=== PATIENT | female | born 1960 | race Caucasian/White ===

== ENCOUNTER 2023-05-04 17:44 | Inpatient (IN) | payer MEDICARE, BC ==
[~2023-05-04] VITALS: Ht 175.3 cm; Wt 68.9 kg
[2023-05-04 18:37] LABS: BASOPHILS ABSOLUTE AUTO 0.08 K/mm3 (0.00-0.23); BASOPHILS PERCENT AUTO 1 % (0-2); EOSINOPHILS ABSOLUTE AUTO 0.03 K/mm3 (0.00-0.68); EOSINOPHILS PERCENT AUTO 0 % (0-6); Hemoglobin 12.7 g/dL (11.5-16.0); IMMATURE GRAN ABSOLUTE AUTO 0.05 K/mm3 (0.00-0.10); IMMATURE GRAN PERCENT AUTO 0 % (0-1); LYMPHOCYTES PERCENT AUTO 9 % (21-46); MONOCYTES ABSOLUTE AUTO 0.58 K/mm3 (0.16-1.47); MONOCYTES PERCENT AUTO 4 % (4-13); Mean Corpuscular HGB 26.7 pg (26.0-34.0); Mean Corpuscular HGB Conc 31.8 g/dL (31.5-36.5); Mean Corpuscular Volume 84 fL (80-100); Mean Platelet Volume 11.1 fL (9.1-12.4); NEUTROPHILS ABSOLUTE AUTO 13.78 K/mm3 (1.96-9.15); NEUTROPHILS PERCENT AUTO 86 % (41-73); Platelet Count 461 K/mm3 (150-400); RDW Coefficient Variation 18.9 % (11.7-14.2); RDW Standard Deviation 57.1 fL (35.1-46.3); Red Blood Cell Count 4.76 M/mm3 (3.80-5.20); White Blood Cell Count 16.02 K/mm3 (4.00-11.30)
[2023-05-04 18:57] LABS: Albumin, Blood 3.2 g/dL (3.4-5.0); Albumin/Globulin Ratio 0.8 (0.8-1.8); Bilirubin, Total 0.4 mg/dL (0.1-1.0); Bun/Creatinine Ratio 19.9 (12.0-20.0); Calcium, Blood 9.1 mg/dL (8.5-10.1); Creatinine, Blood 0.5 mg/dL (0.40-1.00); Globulin, Blood 3.9 g/dL (2.2-4.0); Potassium, Blood 4.3 mmol/L (3.5-5.5); Total Protein, Blood 7.1 g/dL (6.4-8.2)
[2023-05-04 20:29] LABS: Source, Urine Clean Catch
[2023-05-04 20:35] LABS: Appearance, Urine Clear (Clear); Bilirubin, Urine Neg (Neg); Blood, Urine 5+ (Neg); Color, Urine Yellow (P-Yellow); Glucose Qualitative, Urine Neg (Neg); Ketones, Urine Neg (Neg); Leukocyte Esterase, Urine Neg (Neg); Nitrite, Urine Neg (Neg); Protein, Urine Neg (Neg); Specific Gravity, Urine 1.015 (1.003-1.022); Urobilinogen, Urine NORM (Normal)
[2023-05-04 20:49] LABS: Bacteria Not Seen /hpf; Red Blood Cells, Urine 50-100 /hpf (0-2); Squamous Epithelial Cells Not Seen /hpf (Few); White Blood Cells, Urine Not Seen /hpf (0-5)
[2023-05-04 21:23] LABS: Influenza A, PCR NEGATIVE (NEGATIVE); Influenza B, PCR NEGATIVE (NEGATIVE); Resp Syncytial Virus, PCR NEGATIVE (NEGATIVE); SARS-Cov-2 (COVID-19) PCR, MMC NEGATIVE (NEGATIVE)
[2023-05-04 21:47] LABS: Magnesium, Blood 1.9 mg/dL (1.6-2.4); Phosphorus, Blood 4.6 mg/dL (2.5-4.9)
[2023-05-04] MEDS ORDERED: OMEP20ER PO (21:50)
[2023-05-04] MEDS ORDERED: ELIQUIS5 M2 PO (21:50)
[2023-05-04] MEDS ORDERED: GABA300 PO (21:50)
[2023-05-04] MEDS ORDERED: BACL10 PO (21:51)
[2023-05-04] MEDS ORDERED: CHOLESTYRAMI239.4 G1 PO (21:51)
[2023-05-04] MEDS ORDERED: COLESTIPOL HCL1 G1 PO (21:51)
[2023-05-04] MEDS ORDERED: METO25ER PO (21:52)
[2023-05-04] MEDS ORDERED: DIPATR PO (21:52)
[2023-05-04] MEDS ORDERED: DULO60 PO (21:52)
[2023-05-04] MEDS ORDERED: ROPI1 PO (21:52)
[2023-05-04] MEDS ORDERED: OXYC10ER PO (21:53)
[2023-05-04] MEDS ORDERED: Ativan1 MG PO (21:53)
[2023-05-04] MEDS ORDERED: OYSTER SHELL 51 EAC2 PO (21:54)
[2023-05-04] MEDS ORDERED: QUETIAPINE FUMA25 MG PO (23:59)
[2023-05-05 00:11] VITALS: BP 133/73
[2023-05-05 01:11] LABS: Hematocrit 34.7 % (33.0-51.0); Hemoglobin 11.5 g/dL (11.5-16.0); Mean Corpuscular HGB 27.2 pg (26.0-34.0); Mean Corpuscular HGB Conc 33.1 g/dL (31.5-36.5); Mean Corpuscular Volume 82 fL (80-100); Mean Platelet Volume 10.8 fL (9.1-12.4); Platelet Count 427 K/mm3 (150-400); RDW Coefficient Variation 18.5 % (11.7-14.2); RDW Standard Deviation 55.1 fL (35.1-46.3); Red Blood Cell Count 4.23 M/mm3 (3.80-5.20); White Blood Cell Count 25.18 K/mm3 (4.00-11.30)
[2023-05-05 01:27] LABS: Bun/Creatinine Ratio 21.9 (12.0-20.0); Calcium, Blood 8.4 mg/dL (8.5-10.1); Creatinine, Blood 0.46 mg/dL (0.40-1.00); Potassium, Blood 3.9 mmol/L (3.5-5.5)
[2023-05-05 05:33] VITALS: BP 117/75
--- NOTE | 2023-05-05 07:32 | NUR ---
report received verified from er. a/o and pleasent, cooperative with orders. pt fibrile and with high heart rate, new iv started to right fore arm and fluids plus antibiotics started pt does not report of any distress, daughter at bedside to assist in care. admission done
[2023-05-05 08:05] VITALS: BP 137/81
[2023-05-05 16:22] VITALS: BP 161/85
--- NOTE | 2023-05-05 17:54 | NUR ---
SHIFT SUMMARY PT A&OX4, VSS, W/C AND PROSTHESIS AT BASELINE, VOIDING, TOLERATING PO, AND PAIN MANAGED PER EMAR. BLOOD CULTURE RESULTS PENDING. CALL LIGHT WITHIN REACH AND PT ABLE TO MAKE NEEDS KNOWN.
--- NOTE | 2023-05-05 19:35 | NUR ---
AWAKE. AFFECT CHEERFUL. DENIES DISCOMFORT. PUREWICK IN USE. CALL LIGHT IN REACH
[2023-05-05 19:56] VITALS: BP 154/85
--- NOTE | 2023-05-06 03:18 | NUR ---
ELECTRICAL PROSPECTING ENGINEER SUMMARY BP ELEVATED, OTHERWISE VSS. ALERT AND ORIENTED X 4. INTERMITTENT DISCOMFORT - SEE MAR FOR DETAILS WHEN MEDICATED FOR PAIN. IVF INFUSING, TOLERATING DIET/FLUIDS WELL. PUREWICK IN USE FOR VOIDING, INCONT X 1 AND LINEN CHANGED. HAS BEEN RESTING QUIETLY WITH FEW INTERRUPTIONS OTHERWISE. CALL LIGHT I REACH. RAILS UP X 3 FOR SAFETY. WILL CONTINUE TO MONITOR
[2023-05-06 04:34] VITALS: BP 159/86
[2023-05-06 05:27] LABS: Hematocrit 33.4 % (33.0-51.0); Mean Corpuscular HGB 27.3 pg (26.0-34.0); Mean Corpuscular HGB Conc 32.9 g/dL (31.5-36.5); Mean Corpuscular Volume 83 fL (80-100); Mean Platelet Volume 11.5 fL (9.1-12.4); Platelet Count 409 K/mm3 (150-400); RDW Coefficient Variation 18.6 % (11.7-14.2); RDW Standard Deviation 55.9 fL (35.1-46.3); Red Blood Cell Count 4.03 M/mm3 (3.80-5.20); White Blood Cell Count 24.23 K/mm3 (4.00-11.30)
[2023-05-06 05:54] LABS: Albumin, Blood 2.3 g/dL (3.4-5.0); Anion Gap 6 mmol/L (6-16); Blood Urea Nitrogen 5 mg/dL (8-24); Bun/Creatinine Ratio 12.6 (12.0-20.0); CO2, Blood 24 mmol/L (21-32); Calcium, Blood 8.3 mg/dL (8.5-10.1); Chloride, Blood 108 mmol/L (98-108); Glomerular Filtration Rate 112 (60-); Glucose, Blood 121 mg/dL (70-99); Magnesium, Blood 1.9 mg/dL (1.6-2.4); Phosphorus, Blood 2.1 mg/dL (2.5-4.9); Potassium, Blood 3.3 mmol/L (3.5-5.5); Sodium, Blood 138 mmol/L (136-145)
[2023-05-06 07:51] VITALS: BP 136/84
[2023-05-06 16:12] VITALS: BP 132/91
--- NOTE | 2023-05-06 16:56 | NUR ---
SHIFT SUMMARY PT AOX4, MAKES HER NEEDS KNOWN. SHE IS ON BR. MEDICATED FOR PAIN PER THE EMAR. NO OTHER COMPLAINTS FROM THE PT THIS SHIFT. SHE HAS BEEN RESTING COMFORTABLY IN BED, HER DAUGHTER WAS AT THE BS THIS SHIFT. CALL LIGHT WITHIN REACH, BED IN THE LOWEST POSITION. WILL REPORT TO ONCOMING NURSE.
[2023-05-06 19:26] VITALS: BP 143/81
--- NOTE | 2023-05-06 22:00 | NUR ---
PT A&OX4 PLEASANT COOPERATIVE REPORTS DISTAL PAIN BLE RECENT BILAT BKA IN AUGUST. PT REPORTS ANXIETY 11/29W STATES HX OF PANIC SINCE SURGERIES. MEDICATED PER EMAR. TELE ST BB @107BPM LUNGS ARE CLEAR T/O. PT HAS HX OF STOMACH RESECTION BS ABSENT DENIES PAIN OR TENDERNESS. PT REPORTS NEUROPATHY CONSTANT W/ AMPUTATION AND HAS "PHANTOM" PAINS TO STUMPS. PT HAS PURWIC IN PLACE. PT CALLS APPROPERIATELY CALL GARZA WITHIN REACH,BED LOWERED PT REQUESTED FAN ,WILL CONTINUE TO MONITOR.
[2023-05-07 04:13] VITALS: BP 153/79
[2023-05-07 05:35] LABS: Hematocrit 33.6 % (33.0-51.0); Mean Corpuscular HGB 27.2 pg (26.0-34.0); Mean Corpuscular HGB Conc 32.7 g/dL (31.5-36.5); Mean Corpuscular Volume 83 fL (80-100); Mean Platelet Volume 12.1 fL (9.1-12.4); Platelet Count 441 K/mm3 (150-400); RDW Coefficient Variation 18.1 % (11.7-14.2); RDW Standard Deviation 54.4 fL (35.1-46.3); Red Blood Cell Count 4.05 M/mm3 (3.80-5.20)
[2023-05-07 06:05] LABS: Bun/Creatinine Ratio 15.8 (12.0-20.0); Calcium, Blood 8.6 mg/dL (8.5-10.1); Creatinine, Blood 0.44 mg/dL (0.40-1.00); Potassium, Blood 3.7 mmol/L (3.5-5.5)
--- NOTE | 2023-05-07 06:44 | NUR ---
ASSUMED CARE OF PT AT 0400. NO CHANGES NOTED. AM MEDS RECIEVED PER EMAR. WCTM AND REPORT TO DAY RN.
[2023-05-07 07:58] VITALS: BP 154/96
[2023-05-07] MEDS ORDERED: DOXY100 PO (13:29)
[2023-05-07] MEDS ORDERED: GUAI600T33 PO (13:29)
--- NOTE | 2023-05-07 15:09 | NUR ---
PT DISCHARGED 1500 AOX4 AND COOPERATIVE OF ALL CARE. PAPER WORK REVIEWED AND EDUCARTIONAL MATERIAL SENT WITH PT. PT HAD DAUGHTER AT BEDSIDE TO GO OVER INFORMATION AND TO TRANSFER HOME. PT WAS ABLE TO GET INTO WHEEL CHAIR WITH DAUGHTERS HELP AND REFUSED ESCORT OUT. ALL PERSONAL BELONGINGS COLLECTED AND TAKEN OUT WITH PT. NO DISTESS NOTED.
== END 2023-05-07 15:00 | disposition home or self-care (01) | DRG 871 ==
LOC: ER 17:44 → MEDS 23:48
PROVIDERS: Emergency Medicine; Internal Medicine; Student in an Organized Health Care Education/Training Program; ADMIT Internal Medicine
DX: A41.9 Sepsis, unspecified organism (principal); G92.8 Other toxic encephalopathy; J18.9 Pneumonia, unspecified organism; E87.20 Acidosis, unspecified; R65.20 Severe sepsis without septic shock; E87.6 Hypokalemia; Z86.73 Personal history of transient ischemic attack (TIA), and cerebral infarction without residual deficits; Z89.512 Acquired absence of left leg below knee; Z89.511 Acquired absence of right leg below knee; Z90.81 Acquired absence of spleen; Z90.3 Acquired absence of stomach [part of]; Z88.5 Allergy status to narcotic agent; Z88.0 Allergy status to penicillin; Z98.84 Bariatric surgery status; Z79.891 Long term (current) use of opiate analgesic; Z79.01 Long term (current) use of anticoagulants; Z11.52 Encounter for screening for COVID-19
CPT/HCPCS: 0241U; 36415; 51701; 70450; 70491; 71045; 80048; 80053; 80069; 81001; 83605; 83735; 84100; 84145; 85025; 85027; 87449; 93005; 93010; 96361-59; 96365-59; 99285-25; A9270; J0456; J0692; J0696; J7030; J7050; J7120; Q9967

== ENCOUNTER 2023-08-12 11:50 | Inpatient (IN) | payer MEDICARE, BC ==
[~2023-08-12] VITALS: Ht 121.9 cm; Wt 71.3 kg
[2023-08-12] VITALS (27 sets, daily range): BP systolic 83–105; BP diastolic 53–70
[~2023-08-12 11:50] MED LIST: Ativan1 MG PO; BACL10 PO; CHOLESTYRAMI239.4 G1 PO; COLESTIPOL HCL1 G1 PO; DIPATR PO; DOXY100 PO; DULO60 PO; ELIQUIS5 M2 PO; GABA300 PO; GUAI600T33 PO; METO25ER PO; OMEP20ER PO; OXYC10ER PO; OXYCODONE-ACET1 EAC2 PO; OYSTER SHELL 51 EAC2 PO; QUETIAPINE FUMA25 MG PO; ROPI1 PO
[2023-08-12] MEDS ORDERED: NS 1,000 ML IV SCH ×2 (12:05→14:05)
[2023-08-12 12:20] LABS: Hemoglobin 10.3 g/dL (11.5-16.0)
[2023-08-12 12:29] LABS: Hematocrit 29.9 % (33.0-51.0); Mean Corpuscular HGB 31.4 pg (26.0-34.0); Mean Corpuscular HGB Conc 34.4 g/dL (31.5-36.5); Mean Corpuscular Volume 91 fL (80-100); Mean Platelet Volume 11.8 fL (9.1-12.4); Platelet Count 589 K/mm3 (150-400); RDW Coefficient Variation 17.8 % (11.7-14.2); RDW Standard Deviation 59.2 fL (35.1-46.3); Red Blood Cell Count 3.28 M/mm3 (3.80-5.20)
[2023-08-12 12:42] LABS: Albumin, Blood 1.5 g/dL (3.4-5.0); Albumin/Globulin Ratio 0.4 (0.8-1.8); Bilirubin, Total 0.5 mg/dL (0.1-1.0); Bun/Creatinine Ratio 19.8 (12.0-20.0); Calcium, Blood 7.5 mg/dL (8.5-10.1); Creatinine, Blood 0.71 mg/dL (0.40-1.00); Globulin, Blood 3.6 g/dL (2.2-4.0); Potassium, Blood 4.6 mmol/L (3.5-5.5); Total Protein, Blood 5.1 g/dL (6.4-8.2)
[2023-08-12 12:56] LABS: BASOPHILS PERCENT MAN 0 % (0-2); EOSINOPHILS PERCENT MAN 0 % (0-6); LYMPHOCYTES ABSOLUTE MAN 1.04 K/mm3 (0.84-5.20); LYMPHOCYTES PERCENT MAN 2 % (21-46); MONOCYTES PERCENT MAN 0 % (4-13); NEUTROPHILS ABSOLUTE MAN 51.25 K/mm3 (1.96-9.15); SEG NEUTROPHILS PERCENT MAN 98 % (41-73); TOTAL CELLS COUNTED 100
[2023-08-12] MEDS ORDERED: Gabapentin 300 MG Cap PO ONE (15:20)
[2023-08-12] MEDS ORDERED: Baclofen 10 MG Tab PO ONE (15:20)
[2023-08-12] MEDS ORDERED: OxyCODONE 10/Acetamin 325 TABLET PO ONE (15:25)
[2023-08-12] MEDS ORDERED: Cefepime HCl 1,000 MG in NS 100 ML IV SCH (16:00)
[2023-08-12] MEDS ORDERED: Vancomycin HCL 1,500 MG in NS 250 ML IV SCH (16:00)
--- NOTE | 2023-08-12 16:08 | NUR ---
ADMISSION: Pt admitted from ED. Second liter of NS infsing along with first antibiotic. Pt plesant, sitting up, A/O x 4. Supplemental O2 4L via NC. Daughter at bedside with pt. Bilateral IV's patent.
[2023-08-12] MEDS ORDERED: CALQUENCE100 M1 PO (17:16)
--- NOTE | 2023-08-12 17:42 | NUR ---
PROVIDER UPDATE: Dr Faust notified of pt's updated medication requisition and skin issues.
[2023-08-12] MEDS ORDERED: QUEtiapine Fumarate 25 MG Tab PO PRN (18:00)
--- NOTE | 2023-08-12 18:33 | NUR ---
HOME MEDICATIONS: Pt's daughter states she will bring in home medications tomorrow morning.
--- NOTE | 2023-08-12 18:46 | NUR ---
SHIFT SUMMARY: Pt admitted to ICU 4 from ED. Photos taken of redness and what appears to be an old, healing skin tear on coccyx/right buttock and a skin tear on the right wrist. Supplemental oxygen titrated down to 2L NC. Pt has received 2 liters NS. She continues to have soft BPs. 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 She has bilateral BKAs. Pure wick placed per pt request. Pt's daughter, Rima, at bedside for admission and received updates.
--- NOTE | 2023-08-12 19:00 | NUR ---
PROVIDER UPDATE: Dr Faust called regarding pt's hypotension. RN instructed to continue to monitor.
--- NOTE | 2023-08-12 19:29 | NUR ---
PULM CONSULT: RN to call [facility] in morning. Clarified with Dr Faust and previous solution designer pulm.
[2023-08-12] MEDS ORDERED: OxyCODONE 10/Acetamin 325 TABLET PO SCH (20:00)
[2023-08-12] MEDS ORDERED: Apixaban 5 MG Tab PO SCH (21:00)
[2023-08-12] MEDS ORDERED: DULoxetine HCL 60 MG Capsule DR PO SCH (21:00)
[2023-08-12] MEDS ORDERED: Gabapentin 300 MG Cap PO SCH (21:00)
[2023-08-12] MEDS ORDERED: Baclofen 10 MG Tab PO SCH (21:00)
[2023-08-12] MEDS ORDERED: Misc. Tablet PO SCH ×2 (21:00)
[2023-08-12] MEDS ORDERED: Diphenoxylat/Atrop 2.5 / 0.025MG 1 Tab PO SCH (21:00)
--- NOTE | 2023-08-12 21:28 | NUR ---
ASSUMPTION OF CARE: RECEIVED REPORT FROM VANESSA HART. PT ALERT AND ORIENTED. ANSWERS QUESTIONS AND MAKES NEEDS KNOWN. PT STATES SHE IS VERY TIRED THIS EVENING AND LACKS ENERGY. PT ALSO STATES SHE HAS CHRONIC PAIN ALL OVER HER BODY. MEDICATED PER EMAR WITH RELIEF. BEHAVIORAL TECHNICIAN IN PLACE, SR WITH HR 90'S. SBP SOFT BUT STABLE, MAP >65. PT ON 2L NC WITH SPO2 >90%. DENIES SOB WHEN AT REST. LUNGS MORE DIMINISHED ON THE RIGHT SIDE. PUREWICK IN PLACE, DRAINING YELLOW URINE. NO BM YET. TOLERATING PO INTAKE AT THIS TIME. PIVS INTACT AND SALINE LOCKED. BED LOW AND LOCKED. PT RESTING COMFORTABLY AT THIS TIME. CALL LIGHT IN REACH.
[2023-08-12] MEDS ORDERED: NS 250 ML IV PRN (23:30)
[2023-08-13] VITALS (33 sets, daily range): BP systolic 61–124; BP diastolic 36–84
[2023-08-13] MEDS ORDERED: Metoprolol Tartrate 1 MG/ML 5 ML VIAL IV ONE (03:45)
[2023-08-13] MEDS ORDERED: Vancomycin HCL 1,000 MG in NS 100 ML IV SCH (04:00)
--- NOTE | 2023-08-13 04:00 | NUR ---
PROVIDER UPDATE: CALL PLACED TO DR. CHING REGARDING PT HEART RATE SUSTAINING IN THE 130'S UP FROM THE 90'S. ORDER GIVEN FOR A ONE TIME DOSE OF 5MG LOPRESSOR. PT HR DECREASED BACK TO THE 90'S TO LOW 100'S. PT HAD NO C/O CHEST PAIN OR DISCOMFORT.
[2023-08-13 04:58] LABS: Hematocrit 27.2 % (33.0-51.0); Hemoglobin 9.4 g/dL (11.5-16.0); Mean Corpuscular HGB 31.2 pg (26.0-34.0); Mean Corpuscular HGB Conc 34.6 g/dL (31.5-36.5); Mean Corpuscular Volume 90 fL (80-100); Mean Platelet Volume 12.6 fL (9.1-12.4); Platelet Count 561 K/mm3 (150-400); RDW Coefficient Variation 17.7 % (11.7-14.2); RDW Standard Deviation 57.7 fL (35.1-46.3); Red Blood Cell Count 3.01 M/mm3 (3.80-5.20)
[2023-08-13 05:01] LABS: White Blood Cell Count 35.46 K/mm3 (4.00-11.30)
--- NOTE | 2023-08-13 05:21 | NUR ---
SHIFT SUMMARY: PT REMAINS ALERT AND ORIENTED T/O THE NIGHT. PT REQUIRED INCREASED OXYGEN TO MAINTAIN SATS >90%. PT ON 6L NC WITH SPO2 90-94%. DENIES SOB. THERAPIST RRT IN PLACE, SR/ST WITH FREQUENT PVC'S. HR 90'-S TO 100'S. DENIES CHEST PAIN OR PRESSURE. PT ENDORSES PAIN FREQUENTLY IN BACK, LEGS AND SHOULDERS. SHE STATES THIS IS A CHRONIC PAIN WHICH HAS BEEN RELIEVED BY REPOSITIONING AND MEDICATION. PT WAS ABLE TO SLEEP OFF AND ON T/O THE SHIFT. PT MORE EDEMETOUS THIS SHIFT IN UPPER/LOWER EXTREMETIES. VOIDING LARGE AMOUNTS OF YELLOW URINE, PUREWICK IN PLACE. NO BM THIS SHIFT. PIVS INTACT AND SALINE LOCKED. TOLERATING PO INTAKE WELL. BED LOW AND LOCKED, CALL LIGHT IN REACH.
[2023-08-13 05:51] LABS: BAND PERCENT MAN 3 % (0-8); BASOPHILS PERCENT MAN 0 % (0-2); EOSINOPHILS PERCENT MAN 0 % (0-6); LYMPHOCYTES ABSOLUTE MAN 0.35 K/mm3 (0.84-5.20); LYMPHOCYTES PERCENT MAN 1 % (21-46); MONOCYTES ABSOLUTE MAN 0.35 K/mm3 (0.16-1.47); MONOCYTES PERCENT MAN 1 % (4-13); NEUTROPHILS ABSOLUTE MAN 34.75 K/mm3 (1.96-9.15); SEG NEUTROPHILS PERCENT MAN 95 % (41-73); TOTAL CELLS COUNTED 100
[2023-08-13] MEDS ORDERED: Omeprazole 20 MG CapCR PO SCH (06:00)
[2023-08-13 07:09] LABS: Albumin, Blood 1.3 g/dL (3.4-5.0); Albumin/Globulin Ratio 0.4 (0.8-1.8); Bilirubin, Total 0.3 mg/dL (0.1-1.0); Bun/Creatinine Ratio 26.4 (12.0-20.0); Calcium, Blood 7.4 mg/dL (8.5-10.1); Creatinine, Blood 0.53 mg/dL (0.40-1.00); Globulin, Blood 3.2 g/dL (2.2-4.0); Potassium, Blood 4.7 mmol/L (3.5-5.5); Total Protein, Blood 4.5 g/dL (6.4-8.2)
[2023-08-13] MEDS ORDERED: Cholestyramine/Aspartame 4 GM Packet PO SCH (08:00)
[2023-08-13] MEDS ORDERED: Metoprolol Succinate 25 MG TABCR PO SCH (09:00)
[2023-08-13] MEDS ORDERED: Calcium 500 MG/Vit D 200 Units Tab PO SCH (09:00)
[2023-08-13] MEDS ORDERED: Lactobacil 2-S.Thermo-Bifido 1 1 Cap PO SCH (09:00)
--- NOTE | 2023-08-13 11:06 | NUR ---
"Spiritual Care Visit | Pt. Request Responding to a referral for Spiritual Care, Pt. is awake in bed when she welcomes my visit. Pt. is very pleasant. Facilitated a lengthy life review. Pt verbalized a desire to see Dr. Herr. Continued our family life review and pt. verbalized some of her own medicla history, how she had cared for her parents until they passed, and the circumstances with which she lost her legs. Pt. continued with how her daughter brought her back home to [place] and she had been significanlty independant in her home prior to her recent hospitalization. Considered matters of mandeep and belief. Prayed with the Pt. Pt. verbalized gratitude for the spiritual care she has received, as well as all of the care-givers in this hospital. Pt. made a special verbal point of appreciation for Nani who encouraged ther Pt. during a room cleaning. Prayed with Pt. Pt. verbalized gratitude for the spiritual care visit and welcomed this felt carbonizer to return."
--- NOTE | 2023-08-13 12:22 | NUR ---
REASSESSMENT PT HAS BEEN RESTING IN BED THROUGHOUT THE MORNING. SHE WAKES EASILY, BUT STATES THAT SHE DIDN'T SLEEP MUCH LAST NIGHT AND WANTED TO TRY TO NAP. SHE IS LAYING ON HER RIGHT SIDE AND REFUSED TURNS TO HER L SIDE. SHE DID ROLL BACK AND FORTH TO GET NEW GTZ AND ATTENDS ON. LUNGS ARE COARSE AND VERY DIM. BP HAS BEEN BORDERLINE WITH MAP 65-70 AND SBP IN THE 80S AND 90S. HR IN THE 110-1TEENS WITH TRIGEMINAL PVCS A LOT OF THE TIME. HR UP TO 130S WITH ACTIVITY. PT IS EATING SMALL AMTS. HAS TO REST IN BETWEEN TO MAINTAIN SPO2 ABOVE 90. VOIDING USING PUREWICK. PT'S JOSE FRANCISCO AT THE BEDSIDE CURRENTLY TALKING WITH DR. MATHIAS AND SHREYA.
[2023-08-13] MEDS ORDERED: Peg 400/Hypromellose/Glycerin 15 DROP/ML BTL BOTHEYES PRN (14:40)
[2023-08-13] MEDS ORDERED: LORazepam 1 MG Tab PO PRN (16:15)
--- NOTE | 2023-08-13 16:54 | NUR ---
MET WITH CHICHI AND HER DAUGHTER JOSIE WITH DR. MATHIAS. DISCUSSED CHICHIS PROGNOSIS. WE DISCUSSED CURATIVE VS COMFORT. PATIENT REPORTED THAT SHE HAS FOUGHT HARD AND WANTS TO BE COMFORTABLE. DAUGHTER IS SUPPORTATIVE OF THIS CHOICE. WE DISCUSSED HOSPICE, CODE STATUS, AND PLUREX DRAIN PLACMENT TO ALIVATE DISCOMFORT FROM PLURAL FLUID. CHICHI IS OPEN TO THAT, DR. MATHIAS WILL DISCUSS WITH SURGICAL TEAM TO SEE IF SHE IS A CANDIDATE FOR THIS FOR COMFORT MEASURES. DAUGHTER HAD SOME CONCERNS ABOUT CHICHI HAVING EXTRA ASSISTANCE IN THE HOME RELAYED THIS CONCERN TO ELECTRICIAN HELPER AUTOMOTIVE AND PROVIDED INFORMATION TO FAMILY. SHE WAS MADE A DNR AND POLST WAS FILLED OUT.
--- NOTE | 2023-08-13 17:12 | NUR ---
SHIFT SUMMARY PT HAS HAD INCREASING OXYGEN DEMANDS THROUGHOUT THE SHIFT. SHE IS CURRENTLY ON 10L VIA OXYMASK AT REST. EARLIER TODAY SHE ONLY NEEDED 10 WHEN EATING OR TALKING. LUNGS ARE VERY DIM. MOIST, CONGESTED COUGH, BUT PT SAYS SHE ISN'T BRINGING ANYTHING UP. BP HAS BEEN BORDERLINE ALL DAY WITH MAP IN THE 60S. DR. MATHIAS ORDERED MIDODRINE TO START TONIGHT. HR IN THE LOW 100S THIS AFTERNOON. VOIDING WITH ASSISTANCE OF PUREWICK. POOR APPETITE TODAY. RECEIVING HER HOME SCHEDULED PAIN MEDICATIONS. DR. MATHIAS GAVE OK TO ORDER HER HOME ATIVAN WELL WHEN PT WAS FEELING ANXIOUS THIS AFTERNOON. PT HAS REFUSED TURNS TODAY SAYING SHE IS COMFORTABLE ON HER SIDE. ENCOURAGED HER TO SHIFT HERSELF AROUND STILL TO PROTECT HER SKIN. OXYMASK IS RUBBING ON HER CHIN SO PROTECTIVE DRESSING PLACED ON THE SIDES OF HER CHIN TO PROTECT THE SKIN. DR. MATHIAS AND PALLIATIVE DISCUSSED GOALS OF CARE WITH PT AND HER DAUGHTER. PT DECIDED TO BE DNR AND WILL LIKELY PURSUE HOSPICE UPON DISCHARGE.
[2023-08-13] MEDS ORDERED: rOPINIRole HCl 2 MG Tab PO SCH (18:00)
[2023-08-13] MEDS ORDERED: Midodrine 5 MG Tab PO SCH (18:00)
--- NOTE | 2023-08-13 19:00 | NUR ---
ASSUMED CARE ASSUMED CARE OF PATIENT. PT IS SLEEPING WHEN UNDISTURBED. ROUSES TO VERBAL STIMULI. ORIENTED TO SELF AND TO PLACE/SITUATION. SLOW, BUT APPROPRIATE VERBAL RESPONSE. MOVES ALL EXTREMITIES WEAKLY AND SLOWLY. CONTINUES WITH C/O GENERAL PAIN/DISCOMFORT. MONITOR SHOWS ST WITH RUNS OF BIGEMINY AND TRIGEMINY. RATE 100-110. BP STABLE AT THIS TIME. 10L OXYMASK IN PLACE- SATS >95%. RESPIRATIONS ARE TACHYPNEIC WITH EXERTION. PUREWICK IN PLACE. SEE SHIFT ASSESSMENT FOR FULL ASSESSMENT.
[2023-08-13] MEDS ORDERED: NS 250 ML IV SCH (21:45)
--- NOTE | 2023-08-13 21:45 | NUR ---
HYPOTENSION BP 61/36. PT ROUSES TO VERBAL/TACTILE STIMULI, BUT ONLY SLIGHTLY. DAUGHTER NOTIFIED OF CHANGE IN HEMODYNAMICS AND IN NEURO CHANGES. DR. MATHIAS NOTIFIED- DISCUSSED PLAN OF CARE AND THE FACT THAT PATIENT IS NOW A DNR. PLAN IS TO NOT ESCALATE CARE PER DR. MATHIAS. DAUGHTER, JOSIE, IS AWARE WELL. WILL GIVE 250ML NS BOLUS. OVERALL PLAN IS TO KEEP PT COMFORTABLE AND CONTINUE CURRENT TREATMENT.
[2023-08-13] MEDS ORDERED: NS 250 ML IV ONE ×2 (21:55→22:00)
[2023-08-14] VITALS (35 sets, daily range): BP systolic 70–109; BP diastolic 44–65
[2023-08-14 03:38] LABS: Hemoglobin 7.9 g/dL (11.5-16.0); Mean Corpuscular HGB 30.6 pg (26.0-34.0); Mean Corpuscular HGB Conc 34.3 g/dL (31.5-36.5); Mean Corpuscular Volume 89 fL (80-100); Mean Platelet Volume 12.9 fL (9.1-12.4); Platelet Count 359 K/mm3 (150-400); RDW Coefficient Variation 17.6 % (11.7-14.2); RDW Standard Deviation 55.8 fL (35.1-46.3); Red Blood Cell Count 2.58 M/mm3 (3.80-5.20)
[2023-08-14 03:56] LABS: White Blood Cell Count 24.29 K/mm3 (4.00-11.30)
[2023-08-14 04:07] LABS: Vancomycin, Trough 11.5 ug/mL (5.0-10.0)
[2023-08-14 04:10] LABS: Albumin, Blood 1.1 g/dL (3.4-5.0); Anion Gap 8 mmol/L (3-11); Blood Urea Nitrogen 13 mg/dL (8-24); Bun/Creatinine Ratio 32.2 (12.0-20.0); CO2, Blood 23 mmol/L (21-32); Calcium, Blood 7.2 mg/dL (8.5-10.1); Chloride, Blood 111 mmol/L (98-108); Glomerular Filtration Rate 112 (60-); Glucose, Blood 91 mg/dL (70-99); Phosphorus, Blood 2.5 mg/dL (2.5-4.9); Potassium, Blood 4.3 mmol/L (3.5-5.5); Sodium, Blood 138 mmol/L (136-145)
[2023-08-14 04:12] LABS: BAND PERCENT MAN 4 % (0-8); BASOPHILS PERCENT MAN 0 % (0-2); EOSINOPHILS PERCENT MAN 0 % (0-6); MONOCYTES PERCENT MAN 0 % (4-13); NEUTROPHILS ABSOLUTE MAN 24.29 K/mm3 (1.96-9.15); SEG NEUTROPHILS PERCENT MAN 96 % (41-73); TOTAL CELLS COUNTED 100
[2023-08-14] MEDS ORDERED: Vancomycin HCL 1,250 MG in NS 250 ML IV SCH (04:16)
--- NOTE | 2023-08-14 06:21 | NUR ---
SHIFT SUMMARY PT SLEEPS/RESTS WHEN UNDISTURBED. HAS PERIODS WHERE SHE IS A LITTLE MORE HARD TO WAKE UP. USUALLY RESPONDS TO VERBAL STIMULI. VERBAL RESPONSE IS SLOW AND SPEECH IS SOFT. OCCASIONALLY UNABLE TO SAFELY GIVE MEDS D/T DECREASED RESPONSIVENESS. OTHER TIMES SHE IS ABLE TO TAKE 1-2 PILLS AND SWALLOWS OF WATER WITHOUT DIFFICULTY. ATTEMPTS TO ASSIST WITH REPOSITIONING. PT PREFERS TO STAY ON RIGHT SIDE- STATES THAT IT IS MORE COMFORTABLE FOR HER. HIPS SHIFTED OCCASIONALLY. REMAINS ON OXYMASK NOW AT 12L TO MAINTAIN SATS >90%. CONTINUES TO BE HYPOTENSIVE WITH MAP OCCASIONALLY LESS THAN 60. 250ML NS BOLUS GIVEN X 1 DURING NOC WITH MINIMAL RESPONSE. MONITOR SHOWS NSR-ST WITH PVCs, RATE 90S-100s. AFEBRILE. PUREWICK IN PLACE- YELLOW URINE. MEDICATED WITH OXYCODONE 5MG PO FOR PAIN X 2 DOSES. ALSO MEDICATED WITH ATIVAN 1MG PO FOR MILD ANXIETY. WILL REPORT TO ONCOMING RN WHEN AVAILABLE.
--- NOTE | 2023-08-14 10:14 | NUR ---
CARE OF PT ASSUMED AT 0700, BEDSIDE REPORT TAKEN, PT INITIALLY VERY DROWSY, LETHARGIC. OPENS EYES TO VOICE, FOLLOWS COMMANDS. ORIENTED TO SELF, THOUGHT SHE WAS IN A FDC. ATTENDS WET, PT GIVEN FULL BEDBATH, NEW PUREWICK PLACED. DR MATHIAS IN TO SEE PT, UPDATE GIVEN. MEDS REVIEWED W DR MATHIAS. PT BECAME MORE AWAKE MORNING PROGRESSED. PT REQUESTED PAIN MEDS, WHICH HAD LOWERED BP AND MENTATION PER NIGHT RN. THIS DISCUSSED W PT, DR MATHIAS, AND PT'S DAUGHTER. DECISION MADE TO MAKE COMFORT PRIORITY. PT MOVING TOWARDS COMFORT CARE. PT ON 15L O2 VIA OXYMASK. SATS STABLE WHILE ON MASK, BUT DROP WHILE TAKING SIPS OF WATER. TOPROL XL HELD FOR HYPOTENSION; MAP OVER 65, MIDODRINE GIVEN. ELIQUIS HELD PER DR MATHIAS PT MAY RECEIVE PLEURX. DAUGHTER AT BEDSIDE NOW.
--- NOTE | 2023-08-14 11:24 | NUR ---
Spiritual Care Visit. When I arrive Pt. is somnolent. Daughter is at bedside and welcomes my visit. Facilitate a life review and listen with interest. Daughter verbalizes that she is newer to this area so that she could care for the Pt. Pts. daughter also verbalized an expectation the the Pt. would likely not be able to discharge home. With theraputic listening and life review rapport is established. During the visit the Pt. woke up and rapport was reestablished with the Pt. Pt. displays evidence of a clear mind and a geniune sense of humor. Pt. verbalized gratitude for the spiritual care visit. Will remain available to the Pt., daughter, and family.
[2023-08-14] MEDS ORDERED: Morphine Sulfate 20 MG/1ML 1 ML Oral Syringe PO PRN (13:00)
--- NOTE | 2023-08-14 14:19 | NUR ---
PT IS SLEEPING, APPEARS RESTFUL. PT'S FAMILY AND PATIENT SPOKE W PALLIATIVE CARE AND DR MATHIAS. PT'S STATUS IS NOW COMFORT CARE.
[2023-08-14] MEDS ORDERED: LORazepam 1 MG Tab PO PRN (14:20)
[2023-08-14] MEDS ORDERED: Atropine Sulfate 1% Opth Soln 2ML BTL SL PRN (14:20)
[2023-08-14] MEDS ORDERED: Acetaminophen 650 MG Supp PR PRN (14:20)
[2023-08-14] MEDS ORDERED: Promethazine HCl 25 MG Tab PO PRN (14:20)
[2023-08-14] MEDS ORDERED: Scopolamine Hydrobromide Patch TOP PRN (14:20)
[2023-08-14] MEDS ORDERED: LORazepam 2 MG/ML 1ML Injection IV PRN (14:20)
[2023-08-14] MEDS ORDERED: Morphine Sulfate 20 MG/1ML 1 ML Oral Syringe SL PRN (14:20)
[2023-08-14] MEDS ORDERED: Ondansetron HCl 2 MG / ML 2ML Vial IV PRN (14:20)
[2023-08-14] MEDS ORDERED: OxyCODONE 10/Acetamin 325 TABLET PO PRN (15:05)
--- NOTE | 2023-08-14 15:53 | NUR ---
PT REPOSITIONED. ATTEMPED TO PLACE HIGH FLOW O2 W HUMIDITY FOR COMFORT BUT PT FELT A LITTLE MORE SHORT OF BREATH COMPAIRED TO OXYMASK. OXYMASK REPLACED. PT C/O BACK PAIN, TUAN 5MG SL GIVEN. PT'S DAUGHTER AT BEDSIDE.
--- NOTE | 2023-08-14 16:45 | NUR ---
PT TO ROOM 337, REPORT GIVEN TO RN.
--- NOTE | 2023-08-14 17:12 | NUR ---
DISCUSSED PLAN OF CARE WITH PROVIDER AND BEDSIDE RN. PATIENT IS LESS ALERT TODAY. DAUGHTER HAS CONCERNS ABOUT CHICHI MAKING IT HOME. WE DECIDED TO MAKE HER COMFORT CARE IN THE HOSPITAL TO PROVIDE THE SUPPORT THAT SHE NEEDS AND NOT ATTEMPT TO SEND HER HOME ON HOSPICE AT THIS TIME. CONCERNS THAT SHE WOULD NOT DO WELL WITH TRANSPORT. CHICHI WAS MOVED TO MEDICAL FLOOR
--- NOTE | 2023-08-14 18:28 | NUR ---
PT ARRIVED TO ROOM AT 1645 AND SETTLED IN TO BED. DAUGHTER AND BELONGINGS CAME WITH PT. O2 AT 15L/M BY VENTI MASK PER HER REQUEST. MEDICATED FOR PAIN WITH HELP. JAMSHID FLOWERS'S FROM HX OF CAT SCRATCH FEVER PER CIGAR HEAD HOLER. AWAKE AND ALERT THROUGH THE REMAINDER OF THE SHIFT. REPORTS LITTLE APPETITE AND HAVING MORE DIFFICULTY SWALLOWING HER CHOLESTERINE. WILL REPORT CONDITION TO ONCOMING SHIFT.
--- NOTE | 2023-08-15 13:58 | NUR ---
"Spiritual Care Visit | Comfort Care Family Support Pt. is on comfort care is mostly non-responsive. Pts. bernarda Abarca is at bedside and welcomes my visit. Bernarda Abarca verbalizes anticipatory grief. Listen with empathy and a calming presence. Pastoral care is given as well as some normalizing of the Pt. expereince. Bernarda Abarca displays evidence of understanding and having been comforted and verbalized gratitude for the spiritual care visit. Will remain available to the family."
--- NOTE | 2023-08-15 18:12 | NUR ---
SHIFT SUMMARY PT MEDICATED EVERY 1-2 HOURS FOR PAIN AND EVERY 4 HOURS WITH ATIVAN. MORE AWAKE WHEN MEDS EVERY 2 HOURS AND THIS AFTERNOON PT WAS YELLING "MORPHINE, MORPHINE, MORPHINE". DAUGHTER AT BEDSIDE THROUGH THE DAY. RESP DOWN TO THE MID TEENS THIS AFTERNOON.
[2023-08-16] MEDS ORDERED: LORazepam 1 MG Tab PO PRN (00:30)
--- NOTE | 2023-08-16 00:30 | NUR ---
PER DR CHING, CHANGED PT FROM Q4 HR ATIVAN TO Q2 HR ATIVAN.
--- NOTE | 2023-08-16 04:35 | NUR ---
SHIFT SUMMARY PT ON COMFORT CARE. NO IV ACCESS. PT ON 15 L O2 BY MASK. WILL CONTINUE TO MONITOR.
--- NOTE | 2023-08-16 14:47 | NUR ---
MET WITH CHICHI AND HER DAUGHTER. CHICHI APPEARS COMFORTABLE AT THIS TIME. SOME DIFFICULTY WITH RESPIRTATIONS. REVIEWED MEDICATIONS WITH BEDSIDE RN. SHE WAS HOPEFUL TO START TITRATING DOWN CHICHI'S 02 BUT HER RESPIRATIONS INCREASED WHEN O2 WAS DECREASED AND PATIENT BECAME RESTLESS. SHE IS REQUIRING FREQUENT MEDICATION TO MAINTAIN COMFROT AND DECREASE ANXIETY. PC WILL REMAIN AVALIABLE.
--- NOTE | 2023-08-16 15:09 | NUR ---
"Spiritual Care | Comfort Care visit | EOL Decisions Pt. is one comfort care. Two daughters are at bedside as well as the Pts. ex- and his spouse. Facilitated introductions and life review with those at bedside while Pts. nurses are repositioning her. Pastoral care is given to family. Pts. daughter verbalized gratitude ofr the spiritual care support and hugged this savings counselor. When Pt. passes, the family would like to have [facility] in [place] be their home. Daughter understands that they do not have to make that phone call. Information shared and confirmed with Med. charge nurse."
--- NOTE | 2023-08-16 17:44 | NUR ---
SHIFT SUMMARY: PATIENT ON COMFORT CARE MEASURES ONLY. PATIENT A/O TO SELF, LETHARGIC AND EASILY AROUSABLE c VERBAL STIMULI, ORAL CARE REPOSITIONING. PATIENT ON 10L O2 VIA MASK, RESP RANGES 20-22 BREATHS/MIN. PATIENT RECEIVED COMFORT CARE MEDS PER ORDER. PATIENT APPEARS RESTING COMFORTABLY IN BED T/O SHIFT. PATIENT HAS NO PO INTAKE THIS SHIFT. PATIENT FAMILY'S AT BEDSIDE, NO COMPLAINTS OR NEW CONCERNED, WHEN ASKED T/O SHIFT. PATIENT HAS NO IV ACCESS PER ORDER. CALL LIGHT IN REACH.
--- NOTE | 2023-08-17 04:55 | NUR ---
SHIFT SUMMARY. PATIENT IS ALERT TO VERBAL STIMULI TO SELF. PATIENT LETHARGIC. MEDICATED FOR AIR HUNGER AND ANXIETY/AGITATION PER EMAR. PATIENT REPOSITIONED Q2H. PATIENT BUE/BLE ELEVATED WITH PILLOWS FOR COMFORT. PATIENT O2 DECREASED TO FROM 10L TO 8L'S VIA MASK. PATIENT HAS MUSIC AND LIGHTS ON. PATIENTS RESPIRATIONS ARE CURRENTLY AT 27 BPM, SHALLOW, AND IRREGULAR. PATIENT IS ON COMFORT CARE. PATIENT HAS NO IV ACCESS ORDER. PATIENT DIAPHORETIC; BED BATH GIVEN. BED IS LOCKED IN THE LOWEST POSITION WITH CALL LIGHT IN REACH. CARE IS ONGOING.
--- NOTE | 2023-08-17 16:59 | NUR ---
SHIFT SUMMARY: PATIENT STILL ON COMFORT CARE MEASURE. PATIENT NONVERBAL, ONLY OPEN HER EYES TO VERBAL STIMULI, REPOSTIONING AND ORAL CARE. PATIENT ON 6L OXYMIZER FOR COMFORT. PATIENT MEDICATED c PRN COMFORT CARE MEDS PER ORDER T/O SHIFT c GOOD EFFECT. PATIENT APPEARS TO BE RESTING COMFORTABLY IN BED, RESP IS EVEN AND UNLABORED. PATIENT FAMILY AT BEDSIDE T/O SHIFT. PATIENT HAS NO IV ACCESS PER ORDER. PATIENT HAS NO OUTPUT THIS SHIFT. CALL LIGHT IN REACH.
--- NOTE | 2023-08-18 04:29 | NUR ---
SHIFT SUMMARY PATIENT ON COMFORT CARE. SOMNOLENT. EYES REMAINED CLOSED AND NON-VERBAL. BILATERAL BKA. ON 5L O2 NC FOR COMFORT. ROXANOL FOR COMFORT AND ATROPINE DROPS GIVEN FOR EXCESSIVE SECRETIONS. SUCTIONED NEEDED. APPEARS TO RESTING COMFORTABLY. Q2 TURNS. DAUGHTER PRESENT AT SHIFT CHANGED AND STAYED A FEW HOURS. CALL LIGHT IN REACH. BED IN LOWEST POSITION AND ALARM ACTIVATED. WILL CONTINUE TO MONITOR UNTIL DAY SHIFT NURSE ASSUMES CARE.
--- NOTE | 2023-08-18 13:56 | NUR ---
"Spiritual Care | EOL Callback Pt. had passed. Family at bedside had requested this duck farmer. After confirring with the On-call Felt Strip Finisher, visited family at bedside. Pastoral care and EOL education is given as was prayer. Family had chosen [facility] home. The family verbalized gratitude for the spiritual care, as did the Pt's. attending nurse."
--- NOTE | 2023-08-18 14:08 | NUR ---
SHIFT NOTE: PATIENT OM COMFORT CARE MEASURE. MEDICATED c COMFORT CARE MEDS PER ORDER FOR COMFORT. PATIENT DAUGHTER (JOSIE) AT BEDSIDE. PATIENT TOD 1148 VERIFIED BY APPLICATION ENGINEER, SONYA WALLER AND NOTIFIED DR. JHONY KING. PATIENT DAUGHTER REQUESTED TO SPOKE TO JORDEN, NOTIFIED NURSING SCIENTIFIC RESEARCH MANAGER REGARDING PATIENT DAUGHTER'S REQUEST. GUSTAVO CAME IN ROOM AT AROUND 1335 AND SPOKE TO JOSIE. JOSIE WAS VERY THANKFUL AND APPRECIATIVE TO ALL STAFF CARES FOR HER MOM. JOSIE LEFT THE ROOM AT 1350. ALL PATIENT PERSONAL BELONGINGS WERE SENT HOME sheba GALINDO. POST MORTEM CARE DONE. THIS RN FOUND A COUPLE BOTTLES OF PATIENT HOME MED (CALQUENCE, COLESTIPOL) IN PATIENT MED DRAWER. CALLED JOSIE REGARDING THIS 2 BOTTLE OF HOME MEDS. PER JOSIE "YOU CAN DISPOSE IT, I DON'T WANT IT." NOTIFIED PHARMACIST, SPOKE TO [facility]. PER [facility] "JUST DISPOSE IT IN USE MEDICATIONS CONTAINER AND REMOVED PATIENT'S NAME" AND NOTIFIED SONYA WALLER RN.
--- NOTE | 2023-08-18 15:50 | NUR ---
FINAL NOTE: PATIENT LEFT THE ROOM AT 1541 AND WAS TRANSPORTED VIA GURNEY BY [facility] NAME BHARATH.
== END 2023-08-18 11:48 | DRG 871 ==
LOC: ER 11:50 → ICUE 14:51 → MEDS 14:51 → ICUE 16:10 → MEDS 08-14 16:47
PROVIDERS: Emergency Medicine; Internal Medicine; Internal Medicine Critical Care Medicine; ADMIT Internal Medicine
PROC: 3E03329 Introduction of Other Anti-infective into Peripheral Vein, Percutaneous Approach (ICD-10-PCS; 2023-08-12)
PROC: 3E033XZ Introduction of Vasopressor into Peripheral Vein, Percutaneous Approach (ICD-10-PCS; principal; 2023-08-13)
DX: A41.9 Sepsis, unspecified organism (principal); J18.9 Pneumonia, unspecified organism; J96.01 Acute respiratory failure with hypoxia; R65.21 Severe sepsis with septic shock; C85.90 Non-Hodgkin lymphoma, unspecified, unspecified site; J91.8 Pleural effusion in other conditions classified elsewhere; Z51.5 Encounter for palliative care; Z66 Do not resuscitate; I34.2 Nonrheumatic mitral (valve) stenosis; K21.9 Gastro-esophageal reflux disease without esophagitis; G89.4 Chronic pain syndrome; R19.7 Diarrhea, unspecified; Z86.73 Personal history of transient ischemic attack (TIA), and cerebral infarction without residual deficits; Z90.81 Acquired absence of spleen; Z90.49 Acquired absence of other specified parts of digestive tract; Z89.511 Acquired absence of right leg below knee; Z89.512 Acquired absence of left leg below knee; Z86.718 Personal history of other venous thrombosis and embolism; Z88.0 Allergy status to penicillin; Z88.5 Allergy status to narcotic agent; Z79.01 Long term (current) use of anticoagulants; Z79.891 Long term (current) use of opiate analgesic; Z79.899 Other long term (current) drug therapy; Z98.1 Arthrodesis status; Z87.891 Personal history of nicotine dependence
CPT/HCPCS: 36415; 71045; 80053; 80069; 80202; 83880; 84484; 85025; 93005; 93010; 94760; 94762; 96361; 96374; 99285-25; A9270; J0692; J3370; J7030; J7050